=== PATIENT | male | born 1990 | race Caucasian/White ===

== ENCOUNTER 2020-05-04 14:22 | Emergency (ER) | payer BC, SELFPAY ==
[2020-05-04 14:26] VITALS: BP 147/89; PULSE 62; RESP 16; TEMP 37.2; O2SAT 98; BMI 21.8
--- NOTE | 2020-05-04 14:40 | XR_ITS ---
PROCEDURE: XR RIBS RT MIN 3V W CXR1V CLINICAL INDICATION: R.lower rib pain mid-clavicular COMPARISON: No exams were available for comparison FINDINGS: Ribs 1 through 12 are visualized and appear intact with no definite fracture seen. The right lung myers well expanded and clear. There is no pneumothorax. IMPRESSION: No acute findings. Dictated by: Dr. Landon Saeed MD 05/04/2020 16:[address] Landon Saeed MD in [place] 05/04/2020 16:26
--- NOTE | 2020-05-04 14:42 | [facility].EDGENADL ---
ED Disposition Clinical Impression: Rib pain Disposition: Home, Self-Care Condition on Discharge: Good Instructions: DI for Acute Pain -- Adult Prescriptions: Cyclobenzaprine HCl [Cyclobenzaprine 5mg Tab] 5 mg PO Q8HP PRN #30 tab PRN Reason: pain/spasm Prescription Printed Ketorolac Tromethamine [Toradol 10mg tablet] 10 mg PO Q6H 5 Days #20 tab Prescription Printed Referrals: PCP,No [Primary Care Provider] - - Critical Care Critical Care Time: No Attestation: On , the high probability of a clinically significant, sudden or life threatening deterioration of the following system(s) required my full and direct attention, intervention and personal management. The time I documented below is in addition to time spent performing reported procedures but includes the following listed in this critical care notation. Medical Decision Making - Medical Records Medical records reviewed: Yes: I reviewed the patient's medical records. - Seth Inquiry Pt receiving controlled substance: No Vital Signs: 05/04/20 14:26 05/04/20 14:46 Temperature 98.9 F Temperature Source Oral Pulse Rate [Left Radial] 62 88 Respiratory Rate 16 18 Blood Pressure [Right Arm] 147/89 H 147/89 H Blood Pressure Mean [Right Arm] 108 108 Blood Pressure Source [Right Arm] Automatic Cuff Blood Pressure Position [Right Arm] Sitting Supine 02 Sat by Pulse Oximetry 98 100 Oxygen Delivery Method Room Air Room Air Orders (Tests/Meds): ED MEDICATIONS Discontinued Medications Generic Name Dose Route Start Last Admin Trade Name Freq PRN Reason Stop Dose Admin Ibuprofen 600 mg 05/04/20 14:54 05/04/20 14:56 Motrin 600mg Tablet PO 05/04/20 14:55 600 mg ONCE ONE Administration Ketorolac Tromethamine 60 mg 05/04/20 14:42 05/04/20 14:51 Toradol 60mg/2ml Vial IM 05/04/20 14:43 Not Given ONCE ONE Orphenadrine Citrate 60 mg 05/04/20 14:42 05/04/20 14:51 Norflex 60mg/2ml Vial IM 05/04/20 14:43 Not Given ONCE ONE ORDERS Category Date Time Status XR ribs RT min 3V w CXR1V Stat Exams 05/04/20 14:40 Taken - Radiology Data #1 Image(s): Chest Image Reviewed: Yes I reviewed the patient's radiology image Preliminary Findings: Normal/NAD General Adult HPI - General Chief complaint: PAIN Stated complaint: ao 04/27/20 fall on pontoon Time Seen by Provider: 05/04/20 14:38 Mode of Arrival: Ambulatory Limitations: No Limitations Description of Symptoms (Recalled from ER Triage Doc. by RN): to ed per pvt car with c/o rt side rib pain, pt states slipped and fell 1 week ago states when he was getting up felt a pop and pain has progressively getting worse. states pain worse with inspiration and movement. - History of Present Illness HPI narrative: This is a 30-year-old male who presents with a day history of right rib pain pain began after taking fall on the Tuesday before last while he was on a pontoon boat. Patient reports when he got up he felt a pop in the right lower chest wall. Pain is intermittent and sharp with variable timing and duration. Pain is exacerbated by right upper extremity movement. Pain is rated at 6 out of 10 in intensity at current time. Patient also has intermittent pain with deep inspiration. No shortness of breath. No other injuries noted by patient. - Related Data Previous Rx's Medication Instructions Recorded Cyclobenzaprine HCl 5 mg PO Q8HP PRN #30 tab 05/04/20 [Cyclobenzaprine 5mg Tab] Ketorolac Tromethamine [Toradol 10 mg PO Q6H 5 Days #20 tab 05/04/20 10mg tablet] Allergies Allergy/AdvReac Type Severity Reaction Status Date / Time No Known Allergies Allergy Verified 05/04/20 14:40 [facility] History - Hepatitis A Screen Drug use history?: No High risk sexual behaviors?: No History of sexually transmitted infection?: No Currently employed?: No Childcare worker?: No Do you have indoor plumbing?: Yes Do you have electricity?: Yes A
[2020-05-04 14:46] VITALS: BP 147/89; PULSE 88; RESP 18; O2SAT 100
[2020-05-04 15:09] VITALS: BP 116/72; PULSE 86; RESP 18; O2SAT 100
[2020-05-04 15:16] VITALS: BP 132/74; PULSE 74; RESP 16; TEMP 36.6; O2SAT 98
== END 2020-05-04 15:18 | disposition home or self-care (01) ==
PROVIDERS: Emergency Provider Emergency Medicine
DX: R07.81 Pleurodynia (principal); W01.0XXA Fall on same level from slipping, tripping and stumbling without subsequent striking against object, initial encounter; Y92.89 Other specified places as the place of occurrence of the external cause
CPT/HCPCS: 71101; 99282